=== PATIENT | female | born 1980 | race Asian ===

== ENCOUNTER 2021-08-08 08:46 | Day surgery (SDC) | payer BC ==
[2021-08-05 14:55] VITALS: BMI 21.4
[2021-08-08 12:35] VITALS: BP 124/72; PULSE 61; TEMP 97.2
== END 2021-08-08 12:25 | disposition home or self-care (01) ==
LOC: FASU-ENDO 08:46
PROVIDERS: ATTEND Internal Medicine Gastroenterology
PROC: 0DBC8ZX Excision of Ileocecal Valve, Via Natural or Artificial Opening Endoscopic, Diagnostic (ICD-10-PCS; 2021-08-08)
PROC: 0DBN8ZX Excision of Sigmoid Colon, Via Natural or Artificial Opening Endoscopic, Diagnostic (ICD-10-PCS; principal; 2021-08-08 11:07)
DX: D12.5 Benign neoplasm of sigmoid colon (principal); K52.9 Noninfective gastroenteritis and colitis, unspecified; K29.50 Unspecified chronic gastritis without bleeding; K31.9 Disease of stomach and duodenum, unspecified; K62.5 Hemorrhage of anus and rectum
CPT/HCPCS: 84703; 88305-TC; 88342-TC